=== PATIENT | male | born 1975 | race Caucasian/White ===

== ENCOUNTER 2017-01-06 15:25 | Emergency (ER) | payer SELFPAY ==
[~2017-01-06] VITALS: Ht 167.6 cm; Wt 65.9 kg
[2017-01-06 15:31] VITALS: BP 118/72; TEMP 99
[2017-01-06] MEDS ORDERED: ENBREL50 MG/1 ML SQ (15:36)
[2017-01-06] MEDS ORDERED: NORCO 325 MG-7.1 TAB PO (18:05)
[2017-01-06 18:27] VITALS: PULSE 89
== END 2017-01-06 18:25 | disposition home or self-care (01) ==
LOC: COL.ER 15:25
DX: S52.591A Other fractures of lower end of right radius, initial encounter for closed fracture (principal); M06.9 Rheumatoid arthritis, unspecified; F17.210 Nicotine dependence, cigarettes, uncomplicated; W01.0XXA Fall on same level from slipping, tripping and stumbling without subsequent striking against object, initial encounter; Y92.69 Other specified industrial and construction area as the place of occurrence of the external cause; Y99.0 Civilian activity done for income or pay
CPT/HCPCS: J3010